=== PATIENT | male | born 1995 | race Caucasian/White ===

== ENCOUNTER 2017-02-20 14:54 | Inpatient (IN) | payer OTHER ==
[~2017-02-20] VITALS: Ht 170.2 cm; Wt 68.4 kg
[2017-02-20 14:58] VITALS: BP 139/88; PULSE 101; RESP 14; TEMP 98.2; O2SAT 99
--- NOTE | 2017-02-20 15:10 | PD ---
Physical Exam Date Seen by Provider: February 20, 2017 Narrative Pt is a 22 y/o male presenting to the ED for evaluation of severe depression and anxiety. No formal diagnosis of mental health problems. Pt states he can't tell what's real and what is not. Pt used to take "shrooms" years ago, he continues to have flashback from that time. Pt knows the hallucinations aren't real but cannot stop them. This has been ongoing for at least 1 month. Pt has had thoughts of suicide. Pt started on Zoloft 50mg 1 week ago. Mother also gives him Unisom to help him sleep at night. Pt is tearful. VSS, awaiting bed placement. Data Data Last Documented VS Vital Signs Date Time Temp Pulse Resp B/P Pulse Ox O2 Delivery O2 Flow Rate FiO2 02/20/17 14:58 98.2 101 14 139/88 99 MDM Supervised Visit with JARVIS: Brenda Gilbert February 20, 2017 15:09
--- NOTE | 2017-02-20 15:26 | PD ---
HPI Chief Complaint: Psychiatric Symptoms Time Seen by Provider: 15:17 Travel History International Travel<30 days: No Contact w/Intl Traveler<30days: No Traveled to known affect area: No History of Present Illness HPI Is a 22-year-old male who presents with his mother for psychiatric evaluation. Port that in September 2016 he was about to be released from the [employer]. As a "last hurrah" he decided to use mushrooms in order to get high. He reports that since then he has had feelings of depression, flashbacks, has been having difficulty distinguishing what is real and what is not real. He reports that he feels like he has a robot and everything is fake and now that he has this knowledge he is going to . He has been feeling this way for months but he only recently told his mother. Last week he was seen by his primary care physician Dr. Kemp, started on 50 mg of Zoloft, and encouraged to come here if symptoms worsened. He now comes here requesting psychiatric evaluation. He has occasional thoughts of hurting himself but he wants to live , feels that he has much to live for. He denies any homicidal ideation. He denies any other drug use since September. He denies any alcohol use. He has no other complaints at this time. [facility] Past Medical History Immunizations Current: Yes Social History Alcohol Use: No Tobacco Use: No Substance Use: No Allergies-Medications (Allergen,Severity, Reaction): Coded Allergies: No Known Allergies (Verified Allergy, Mild, 07/04/08) Reported Meds & Prescriptions Reported Meds & Active Scripts Active Reported Vitamin B-12 (Cyanocobalamin) 1,000 Mcg Tab 1,000 Mcg PO DAILY Zoloft (Sertraline HCl) 50 Mg Tab 50 Mg PO HS Review of Systems Except as stated in HPI: all other systems reviewed are Neg Physical Exam Narrative GENERAL: This is a somewhat disheveled-appearing male who is tearful, anxious on initial examination. SKIN: Warm and dry. HEAD: Atraumatic. Normocephalic. EYES: Pupils equal and round. No scleral icterus. No injection or drainage. ENT: No nasal bleeding or discharge. Mucous membranes pink and moist. NECK: Trachea midline. No JVD. CARDIOVASCULAR: Regular rate and rhythm. No murmur appreciated. RESPIRATORY: No accessory muscle use. Clear to auscultation. Breath sounds equal bilaterally. GASTROINTESTINAL: Abdomen soft, non-tender, nondistended. Hepatic and splenic margins not palpable. MUSCULOSKELETAL: No obvious deformities. No clubbing. No cyanosis. No edema. NEUROLOGICAL: Awake and alert. No obvious cranial nerve deficits. Motor grossly within normal limits. Normal speech. PSYCHIATRIC: Depressed, anxious, tearful. Data Data Last Documented VS Vital Signs Date Time Temp Pulse Resp B/P Pulse Ox O2 Delivery O2 Flow Rate FiO2 02/20/17 14:58 98.2 101 14 139/88 99 Orders Complete Blood Count With Diff (02/20/17 15:19) Comprehensive Metabolic Panel (02/20/17 15:19) Psych Screen (02/20/17 15:19) Drug Screen, Random Urine (02/20/17 15:19) Alcohol (Ethanol) (02/20/17 15:19) Lorazepam Inj (Ativan Inj) (02/20/17 15:30) Potassium Chloride (Kcl) (02/20/17 17:45) Labs Laboratory Tests Test 02/20/17 16:28 White Blood Count 8.0 TH/MM3 Red Blood Count 5.25 MIL/MM3 Hemoglobin 15.3 GM/DL Hematocrit 45.9 % Mean Corpuscular Volume 87.4 FL Mean Corpuscular Hemoglobin 29.2 PG Mean Corpuscular Hemoglobin 33.4 % Concent Red Cell Distribution Width 12.7 % Platelet Count 203 TH/MM3 Mean Platelet Volume 9.6 FL Neutrophils (%) (Auto) 76.2 % Lymphocytes (%) (Auto) 19.0 % Monocytes (%) (Auto) 4.0 % Eosinophils (%) (Auto) 0.4 % Basophils (%) (Auto) 0.4 % Neutrophils # (Auto) 6.1 TH/MM3 Lymphocytes # (Auto) 1.5 TH/MM3 Monocytes # (Auto) 0.3 TH/MM3 Eosinophils # (Auto) 0.0 TH/MM3 Basophils # (Auto) 0.0 TH/MM3 CBC Comment DIFF FINAL Differential Comment Sodium Level 139 MEQ/L Potassium Level 3.3 MEQ/L Chloride Level 105 MEQ/L Carbon Dioxide Level 26.6 MEQ/L Anion Gap 7 MEQ/L Blood Urea Nitrogen 10 MG/DL Creatinine 1.01 MG/DL Estimat Glomerular Filtration 91 ML/MIN Rate Random Glucose 87 MG/DL Calcium Level 8.8 MG/DL Total Bilirubin 0.8 MG/DL Aspartate Amino Transf 16 U/L (AST/SGOT) Alanine Aminotransferase 20 U/L (ALT/SGPT) Alkaline Phosphatase 58 U/L Total Protein 7.5 GM/DL Albumin 4.6 GM/DL Ethyl Alcohol Level LESS THAN 3 MG/DL MDM Medical Decision Making Medical Screen Exam Complete: Yes Emergency Medical Condition: Yes Medical Record Reviewed: Yes Differential Diagnosis Substance-induced disorder, adjustment reaction, acute psychosis, schizophrenia , schizoaffective disorder, major depressive disorder Narrative Course 22-year-old male who has been experiencing 4 months of depression, suicidal thoughts, feelings of detachment from reality ever since using shrooms as a psychedelic drug in September 2016. He was started on Zoloft last week which has not been helping. Plan is for psychiatric screening. We will check basic screening labs and provide him 1 mg Ativan for his anxiety. Mental health screening discussed with the patient. Psychiatric screen ordered. The patient is medically cleared for psychiatric disposition. Diagnosis Primary Impression: Medical clearance for psychiatric admission Herson Beckford February 20, 2017 15:26
[2017-02-20] MEDS ORDERED: LORazepam 2 MG/ML VIAL IM ONE (15:30)
[2017-02-20 16:55] LABS: AUTOMATED NEUTROPHIL # 6.1 TH/MM3 (1.8-7.7); BASOPHIL % 0.4 % (0.0-2.0); EOSINOPHIL % 0.4 % (0.0-4.0); HEMATOCRIT 45.9 % (39.0-51.0); HEMO FLAGS DIFF FINAL; LYMPHOCYTE # 1.5 TH/MM3 (1.0-4.8); MEAN CELL VOLUME 87.4 FL (80.0-100.0); MEAN CORPUSCULAR HEMOGLOBIN 29.2 PG (27.0-34.0); MEAN CORPUSCULAR HGB CONC 33.4 % (32.0-36.0); NEUT % 76.2 % (16.0-70.0); PLATELET COUNT 203 TH/MM3 (150-450); RED BLOOD COUNT 5.25 MIL/MM3 (4.50-5.90); RED CELL DISTRIBUTION WIDTH 12.7 % (11.6-17.2)
[2017-02-20 17:27] LABS: ANION GAP 7 MEQ/L (5-15)
[2017-02-20 17:31] LABS: ALKALINE PHOSPHATASE 58 U/L (45-117); ALT (GPT) 20 U/L (12-78); AST (GOT) 16 U/L (15-37); BICARBONATE 26.6 MEQ/L (21.0-32.0); BLOOD UREA NITROGEN 10 MG/DL (7-18); CHLORIDE 105 MEQ/L (98-107); GLOMERULAR FILTRATION RATE 91 ML/MIN (>89); POTASSIUM 3.3 MEQ/L (3.5-5.1); SODIUM (NA) 139 MEQ/L (136-145); TOTAL BILIRUBIN ADULT 0.8 MG/DL (0.2-1.0)
[2017-02-20] MEDS ORDERED: ZOLO50TA PO (17:41)
[2017-02-20] MEDS ORDERED: VITA10002 PO (17:41)
[2017-02-20] MEDS ORDERED: POTASSIUM CHLORIDE 20 MEQ CONTROLLED RELEASE TAB PO ONE (17:45)
[2017-02-20 17:53] LABS: AMPHETAMINE, URINE NEG (NEG); BARBITURATES, URINE NEG (NEG); COCAINE, URINE NEG (NEG)
[2017-02-20 18:47] VITALS: BP 123/82; PULSE 78; RESP 20; TEMP 98.2; O2SAT 97
[2017-02-20 22:23] VITALS: BP 114/82; PULSE 81; RESP 17; O2SAT 99
[2017-02-21 02:00] VITALS: BP 111/65; PULSE 61; RESP 18; O2SAT 99
[2017-02-21 06:00] VITALS: BP 120/66; PULSE 63; RESP 17; O2SAT 98
[2017-02-21 10:30] VITALS: BP 116/67; PULSE 89; RESP 18
[2017-02-21] MEDS ORDERED: LORazepam 1 MG TAB PO PRN (11:30)
[2017-02-21] MEDS ORDERED: hydrOXYzine HCL 50 MG TAB PO PRN (11:30)
[2017-02-21] MEDS ORDERED: diphenhydrAMINE HCL 50 MG/ML VIAL IM PRN (11:30)
[2017-02-21] MEDS ORDERED: ACETAMINOPHEN 325 MG TAB PO PRN (11:30)
[2017-02-21] MEDS ORDERED: LORazepam 2 MG/ML VIAL IM PRN ×2 (11:30)
[2017-02-21] MEDS ORDERED: LORazepam 0.5 MG TAB PO PRN (11:30)
[2017-02-21] MEDS ORDERED: ALUMINUM/MAGNESIUM/SIMETH 30 ML CUP PO PRN (11:30)
[2017-02-21] MEDS ORDERED: traZODone HCL 50 MG TAB PO PRN (11:30)
[2017-02-21] MEDS ORDERED: MAGNESIUM HYDROXIDE SUSP 30 ML CUP PO PRN (11:30)
[2017-02-21] MEDS ORDERED: diphenhydrAMINE HCL 50 MG CAP PO PRN (11:30)
--- NOTE | 2017-02-21 11:35 | HHI.HP ---
Provisional Diagnosis Admission Date February 21, 2017 at 11:17 [place]. Brief psychotic disorder Certification of Person's Competence To Provide Express and Informed Consent I have personally examined Tip Villegas , a person being served at [facility] on, February 21, 2017 11:22. Express and informed consent means consent voluntarily given in writing, by a competent person, after sufficient explanation and disclosure of the subject matter involved to enable the person to make a knowing and willful decision without any element of force, fraud, deceit, duress, or other form of constraint or coercion. This person is 18 years of age or older, is not now known to be incompetent to consent to treatment with a guardian advocate, and does not have a health care surrogate or proxy currently making medical treatment decisions. I have found this person to be one of the following: [X] Competent to provide express and informed consent, as defined above, for voluntary admission to this facility and is competent to provide express and informed consent for treatment. He/she has the consistent capacity to make well reasoned, willful, and knowing decisions concerning his or her medical or mental health treatment. The person fully and consistently understands the purpose of the admission for examination/placement and is fully capable of personally exercising all rights assured under [place] Incompetent to provide express and informed consent to voluntary admission, and this is incompetent to provide express and informed consent to treatment. The person must be transferred to involuntary status and a petition for a guardian advocate filed with the Circuit Court. [] Refusing to provide express and informed consent to voluntary admission but is competent to provide express and informed consent for treatment. The person must be discharged or transferred to involuntary status. Form shall be completed within 24 hours of a person's arrival at the receiving facility and filed in the clinical record of each person: 1. Admitted on a voluntary basis 2. Permitted to provide express and informed consent to his/her own treatment 3. Allowed to transfer from involuntary to voluntary status 4. Prior to permitting a person to consent to his or her own treatment after having been previously found incompetent to consent to treatment. History of Present Illness Capacity: Has Capacity HPI This is a 22-year-old male who may be experiencing his first full-blown psychotic episode. Patient explains this episode began in September 2016 prior to his discharge from the [employer]. Apparently he and several of his [employer] buddies used mushrooms. He came home to his family in October 2016 and has smoked marijuana several times, mostly in an effort to self medicate. He has experienced increasing delusional thinking, auditory hallucinations and possible visual hallucinations. He states that he has great difficulty distinguishing his dreams from reality. He hears voices that are laughing at him and this is very bothersome to him. He is oftentimes unable to avoid hearing these laughing voices and it is upsetting to the point that he may do something to harm himself or continue to self medicate. He also has delusional ideas that he is a robot and that he is not real. He states that he has seen things which he also questions as to the reality or falseness of these visions. The patient is obviously flat, making poor eye contact, and demonstrating impaired relatedness. He brought himself to the emergency Department voluntarily because he can no longer tolerate these experiences. He is afraid he may harm himself. In addition to the psychotic symptoms, he is expressing symptoms of anxiety and depressed mood with anhedonia. Review of Systems ROS Limitations: Psychotic Except as stated in HPI: all other systems reviewed are Neg Past Psych History Psychological trauma history Denied Violence risk - others (6 mos) Minimal to moderate. Violence risk - self (6 mos) Moderate Substance Abuse History Drugs/Alcohol past 12 months Mushrooms and marijuana. Past Family Social History Coded Allergies: No Known Allergies (Verified Allergy, Mild, 07/04/08) Reported Medications Cyanocobalamin (Vitamin B-12)1,000 Mcg Tab1,000 Mcg PO DAILY #1 BOTTLE Ref 0 02/20/17 Sertraline (Zoloft)50 Mg Tab50 Mg PO HS #30 TAB Ref 0 02/20/17 Family History Positive for depression and anxiety. Social History Not currently employed. Lives with his parents in [place]. Has 5 older brothers. Not and has no children. Substance abuse as described above. Received a honorable discharge from the [employer] although states he felt he could have deserved a medical discharge. Patient's Strengths (min. 2) Verbal and has access to healthcare. Physical Exam GENERAL: SKIN: Warm and dry. HEAD: Normocephalic. EYES: No scleral icterus. No injection or drainage. NECK: Supple, trachea midline. No JVD or lymphadenopathy. CARDIOVASCULAR: Regular rate and rhythm without murmurs, gallops, or rubs. RESPIRATORY: Breath sounds equal bilaterally. No accessory muscle use. GASTROINTESTINAL: Abdomen soft, non-tender, nondistended. MUSCULOSKELETAL: No cyanosis, or edema. BACK: Nontender without obvious deformity. No CVA tenderness. Vital Signs Vital Signs Date Time Temp Pulse Resp B/P Pulse Ox O2 Delivery O2 Flow Rate FiO2 02/21/17 10:30 89 18 116/67 Room Air 02/21/17 06:00 98 02/20/17 18:47 98.2 Mental Status Examination Speech: Hesitant Orientation: x3 Memory: Unremarkable Thought Process: Loose Association Thought Content: Paranoid Hallucination Type: Auditory, Visual Attention and Concentration: Abnormal Suicidal Ideation: Yes Previous Suicide Attempts: No Homicidal Ideation: No Previous Homicide Attempts: No Insight: Fair Judgment: Unrealistic Affect: Anxious, Sad Affect if Inappropriate: Flat Mood: Anxious Motor Activity: Normal gait Assessment & Plan Problem List: (1) Brief psychotic disorder ICD Code: F23 Assessment & Plan Estimated LOS: 7 days this is a 22-year-old male who is obviously experiencing a psychotic episode. This may be his first psychotic break and may be related to a schizophrenia reaction. This episode may also have been triggered by his use of mushrooms in September 2016. In any event, he has continued to use marijuana and what appears to be a self-medicating fashion but does not appear to have used mushrooms a second time and he confirms this. At this time he is at significant risk for self-harm due to the persistence of the auditory hallucinations that are laughing at him and his intolerance for these experiences. He describes suicidal ideation. Due to the unpredictable nature of his psychosis, this physician feels he is at significant risk for self-harm. Furthermore, because he is experiencing his first psychotic episode, he requires an evaluation including a comprehensive metabolic profile and thyroid profile and EEG to rule out organic causes of his psychotic symptoms. He also requires the metabolic profile and the EKG to establish his tolerance for psychiatric medications, including Abilify. This physician spoke with the patient's nurse regarding his current behavior and psychotic thinking. The patient's global vp creative + content marketing will be contacted to collect more information from the patient's family regarding his history of psychotic symptoms. It is anticipated he'll be in the hospital for at least a week. Nazario Avendaño MD February 21, 2017 11:35
[2017-02-21 12:20] VITALS: BP 116/67
[2017-02-21 12:51] VITALS: BP 134/85; PULSE 81; RESP 16; TEMP 98.1; O2SAT 100
[2017-02-21 13:33] VITALS: BP 134/85; PULSE 81; RESP 16; TEMP 98.1; O2SAT 100
--- NOTE | 2017-02-21 14:29 | PD.CONS ---
HPI Service [facility] Hospitalists Consult Requested By Psychiatric service Reason for Consult Medical management Primary Care Physician [facility] Diagnoses: History of Present Illness This is a 22-year-old male whose past medical history significant only for chronic costochondritis not responsive to NSAIDs he was admitted to the psychiatric unit for psychotic episode. Hospitalist services were consulted for medical management. Patient explained that in September of last year he took mushrooms for the first time. Since that time he has developed delusional thinking with hallucinations and thoughts of harming himself. He tried to self medicate with marijuana but when that failed to give him any improvement he stopped. He was seen by his primary care physician prior to this admission and was started on Zoloft. He also reports that he has an MRI of the brain scheduled as an outpatient in the next several weeks through his PCPs office. Patient denies any complaints of fever, chills, nausea, vomiting, diarrhea, dizziness, headache, shortness of breath chest pain or abdominal pain. Review of Systems Except as stated in HPI: all other systems reviewed are Neg Past Family Social History Allergies: Coded Allergies: No Known Allergies (Verified , 07/04/08) Past Medical History Costochondritis, chronic Past Surgical History Cholecystectomy Reported Medications Vitamin B-12 (Cyanocobalamin) 1,000 Mcg Tab 1,000 Mcg PO DAILY Zoloft (Sertraline HCl) 50 Mg Tab 50 Mg PO HS Active Ordered Medications Current Medications Medications (Trade) Dose Ordered Sig/Shalom Route Start Time Stop Time Status Last Admin (Ativan) 1 mg Q6H PRN PO 02/21/17 11:30 (Ativan Inj) 1 mg Q6H PRN IM 02/21/17 11:30 (Benadryl) 50 mg Q6H PRN PO 02/21/17 11:30 (Benadryl Inj) 50 mg Q6H PRN IM 02/21/17 11:30 (Tylenol) 650 mg Q4H PRN PO 02/21/17 11:30 (Milk Of Magnesia Liq) 30 ml DAILY PRN PO 02/21/17 11:30 (Mag-Al Plus Susp Liq) 30 ml Q6H PRN PO 02/21/17 11:30 (Desyrel) 50 mg HS PRN PO 02/21/17 11:30 (Atarax) 50 mg Q6H PRN PO 02/21/17 11:30 (Abilify) 2 mg HS PO 02/21/17 21:00 Family History Thyroid problems Depression Anxiety Social History Patient has a history of tobacco use but quit in November. He denies any alcohol consumption. He reports using mushrooms one time in September and reports previously using marijuana earlier this year but denies any recent drug use. 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 Physical Exam Vital Signs Vital Signs Date Time Temp Pulse Resp B/P Pulse Ox O2 Delivery O2 Flow Rate FiO2 02/21/17 13:33 98.1 81 16 134/85 100 02/21/17 12:51 98.1 81 16 134/85 100 02/21/17 12:20 89 18 116/67 02/21/17 10:30 89 18 116/67 Room Air 02/21/17 06:00 63 17 120/66 98 Room Air 02/21/17 02:00 61 18 111/65 99 Room Air 02/20/17 22:23 81 17 114/82 99 Room Air 02/20/17 18:47 98.2 78 20 123/82 97 02/20/17 14:58 98.2 101 14 139/88 99 Physical Exam GENERAL: This is a well-nourished, well-developed patient, in no apparent distress. Awake and alert. Pleasant and cooperative. SKIN: No rashes, ecchymoses or lesions. Cool and dry. HEAD: Atraumatic. Normocephalic. EYES: Pupils equal round and reactive. Extraocular motions intact. No scleral icterus. No injection or drainage. ENT: Nose without bleeding, purulent drainage or septal hematoma. Throat without erythema, tonsillar hypertrophy or exudate. Uvula midline. Airway patent. NECK: Trachea midline. No lymphadenopathy. Supple, nontender, no meningeal signs. CARDIOVASCULAR: Regular rate and rhythm without murmurs, gallops, or rubs. RESPIRATORY: Clear to auscultation. Breath sounds equal bilaterally. No wheezes , rales, or rhonchi. GASTROINTESTINAL: Abdomen soft, non-tender, nondistended. No hepato-splenomegaly , or palpable masses. No guarding. MUSCULOSKELETAL: (+) Tenderness to palpation right anterior chest wall. Extremities without clubbing, cyanosis, or edema. No joint tenderness, effusion , or edema noted. No calf tenderness. NEUROLOGICAL: Awake and alert. Able to move all extremities. No focal neurologic findings appreciated. Normal speech. Laboratory Laboratory Tests Test 02/20/17 02/20/17 16:28 17:13 White Blood Count 8.0 Red Blood Count 5.25 Hemoglobin 15.3 Hematocrit 45.9 Mean Corpuscular Volume 87.4 Mean Corpuscular Hemoglobin 29.2 Mean Corpuscular Hemoglobin 33.4 Concent Red Cell Distribution Width 12.7 Platelet Count 203 Mean Platelet Volume 9.6 Neutrophils (%) (Auto) 76.2 Lymphocytes (%) (Auto) 19.0 Monocytes (%) (Auto) 4.0 Eosinophils (%) (Auto) 0.4 Basophils (%) (Auto) 0.4 Neutrophils # (Auto) 6.1 Lymphocytes # (Auto) 1.5 Monocytes # (Auto) 0.3 Eosinophils # (Auto) 0.0 Basophils # (Auto) 0.0 CBC Comment DIFF FINAL Differential Comment Sodium Level 139 Potassium Level 3.3 Chloride Level 105 Carbon Dioxide Level 26.6 Anion Gap 7 Blood Urea Nitrogen 10 Creatinine 1.01 Estimat Glomerular Filtration 91 Rate Random Glucose 87 Calcium Level 8.8 Total Bilirubin 0.8 Aspartate Amino Transf 16 (AST/SGOT) Alanine Aminotransferase 20 (ALT/SGPT) Alkaline Phosphatase 58 Total Protein 7.5 Albumin 4.6 Ethyl Alcohol Level LESS THAN 3 Urine Opiates Screen NEG Urine Barbiturates Screen NEG Urine Amphetamines Screen NEG Urine Benzodiazepines Screen NEG Urine Cocaine Screen NEG Urine Cannabinoids Screen NEG Result Diagram: 02/20/17 1628 02/20/17 1628 Assessment and Plan Assessment and Plan 22-year-old male whose past medical history significant only for chronic costochondritis not responsive to NSAIDs he was admitted to the psychiatric unit for psychotic episode. Hospitalist services were consulted for medical management. //Psychotic episode after using psychedelics for the first time in September 2016 - Management per psychiatric team //Hypokalemia - Mild - By mouth repletion - A.m. labs to monitor //Costochondritis, chronic - Patient reports failing NSAID therapy in the past - monitor Thank you for allowing us the opportunity to care for this patient. Written by Meryl Martin PA-C acting as scribe for Dr. Humphrey on 02/21/17 at 14 :14. This note was transcribed by scribe Meryl Palaciosm, PA-C. I, Dr. Jann Humphrey personally performed the history, physical exam, and medical decision making; and confirmed the accuracy of the information in the transcribed note. Authenticated by Dr. Jann Humphrey on 02/21/17 at 21:23. Meryl Martin February 21, 2017 14:29 Desiree Humphrey DO February 21, 2017 21:23
[2017-02-21] MEDS: ARIPiprazole 2 MG TAB PO SCH (21:06)
[2017-02-22 05:07] VITALS: BP 118/57; PULSE 62; RESP 16; TEMP 97.7; O2SAT 98
[2017-02-22 09:09] LABS: AUTOMATED NEUTROPHIL # 5.1 TH/MM3 (1.8-7.7); BASOPHIL % 0.3 % (0.0-2.0); EOSINOPHIL # 0.1 TH/MM3 (0-0.4); EOSINOPHIL % 1.1 % (0.0-4.0); HEMATOCRIT 47.8 % (39.0-51.0); HEMO FLAGS DIFF FINAL; LYMPH % 23.5 % (9.0-44.0); LYMPHOCYTE # 1.7 TH/MM3 (1.0-4.8); MEAN CELL VOLUME 87.6 FL (80.0-100.0); MEAN CORPUSCULAR HGB CONC 33.1 % (32.0-36.0); MONO % 4.3 % (0.0-8.0); NEUT % 70.8 % (16.0-70.0); PLATELET COUNT 216 TH/MM3 (150-450); RED BLOOD COUNT 5.46 MIL/MM3 (4.50-5.90); RED CELL DISTRIBUTION WIDTH 12.9 % (11.6-17.2); WHITE BLOOD COUNT 7.1 TH/MM3 (4.0-11.0)
[2017-02-22 10:06] LABS: ALT (GPT) 23 U/L (12-78); ANION GAP 9 MEQ/L (5-15); AST (GOT) 14 U/L (15-37); BICARBONATE 30.5 MEQ/L (21.0-32.0); BLOOD UREA NITROGEN 10 MG/DL (7-18); CHLORIDE 102 MEQ/L (98-107); GLOMERULAR FILTRATION RATE 95 ML/MIN (>89); POTASSIUM 3.9 MEQ/L (3.5-5.1); SODIUM (NA) 141 MEQ/L (136-145)
[2017-02-22 10:31] LABS: ALKALINE PHOSPHATASE 61 U/L (45-117); HDL CHOLESTEROL 47.8 MG/DL (40.0-60.0); LDL CHOLESTEROL 95 MG/DL (0-99); TOTAL BILIRUBIN ADULT 0.7 MG/DL (0.2-1.0)
[2017-02-22 13:17] LABS: HEMOGLOBIN A1a 0.7 %; HEMOGLOBIN A1b 1.4 %; HEMOGLOBIN Ao 87.1 %; HEMOGLOBIN LA1C 1.9 %; HEMOGLOBIN P3 3.4 %
--- NOTE | 2017-02-22 14:59 | HHI.PYPN ---
Subjective Remarks Patient was seen and case discussed with nursing. Patient says the auditory hallucinations have decreased but are still there and today is described as laughing at him. Feels that somebody is watching him. Patient is somewhat vague. Continues to ruminate about an episode when he was high on mushrooms in September. Complaining of poor sleep. Mood is stable. Denies suicidal ideation intent or plan Objective Alert: Yes [place]: Person, Place, Date, Situation Mood: Anxious Affect: Restricted Memory Intact: Immediate (intact) Hallucinations: Auditory (laughing at him), Visual (seeing patterns on the floor) Delusions: Yes Delusion Type: Paranoid (somebody is watching him) Suicidal: Ideation (denies) Homicidal: Ideation (denies) Insight/Judgment Poor Labs Test 02/22/17 08:09 White Blood Count 7.1 TH/MM3 Red Blood Count 5.46 MIL/MM3 Hemoglobin 15.8 GM/DL Hematocrit 47.8 % Mean Corpuscular Volume 87.6 FL Mean Corpuscular Hemoglobin 29.0 PG Mean Corpuscular Hemoglobin 33.1 % Concent Red Cell Distribution Width 12.9 % Platelet Count 216 TH/MM3 Mean Platelet Volume 9.7 FL Neutrophils (%) (Auto) 70.8 % Lymphocytes (%) (Auto) 23.5 % Monocytes (%) (Auto) 4.3 % Eosinophils (%) (Auto) 1.1 % Basophils (%) (Auto) 0.3 % Neutrophils # (Auto) 5.1 TH/MM3 Lymphocytes # (Auto) 1.7 TH/MM3 Monocytes # (Auto) 0.3 TH/MM3 Eosinophils # (Auto) 0.1 TH/MM3 Basophils # (Auto) 0.0 TH/MM3 CBC Comment DIFF FINAL Differential Comment Sodium Level 141 MEQ/L Potassium Level 3.9 MEQ/L Chloride Level 102 MEQ/L Carbon Dioxide Level 30.5 MEQ/L Anion Gap 9 MEQ/L Blood Urea Nitrogen 10 MG/DL Creatinine 0.97 MG/DL Estimat Glomerular Filtration 95 ML/MIN Rate Random Glucose 93 MG/DL Hemoglobin A1c 5.0 % Calcium Level 9.4 MG/DL Total Bilirubin 0.7 MG/DL Aspartate Amino Transf 14 U/L (AST/SGOT) Alanine Aminotransferase 23 U/L (ALT/SGPT) Alkaline Phosphatase 61 U/L Total Protein 7.9 GM/DL Albumin 4.8 GM/DL Triglycerides Level 128 MG/DL Cholesterol Level 168 MG/DL LDL Cholesterol 95 MG/DL HDL Cholesterol 47.8 MG/DL Cholesterol/HDL Ratio 3.51 RATIO Vitamin B12 Level 465 PG/ML 25-Hydroxy Vitamin D Total 10.5 ng/ML Thyroid Stimulating Hormone 1.630 uIU/ML 3rd Gen Vitals/IOs Vital Signs Date Time Temp Pulse Resp B/P Pulse Ox O2 Delivery O2 Flow Rate FiO2 02/22/17 05:07 97.7 62 16 118/57 98 02/21/17 10:30 Room Air Assessment & Plan Problem List: (1) Brief psychotic disorder ICD Code: F23 Assessment & Plan We'll adjust medication for sleep. We will order a ct head Justification for Cont. Inpt. Patient will decompensate in a less restrictive setting Guille Rosas DO February 22, 2017 14:59
[2017-02-22] MEDS ORDERED: diphenhydrAMINE HCL 25 MG CAP PO PRN (15:00)
[2017-02-22 17:52] VITALS: BP 135/73; PULSE 70; RESP 16; TEMP 98.4; O2SAT 99
--- NOTE | 2017-02-22 21:50 | EKG ---
Date Performed: 02/22/2017 Time Performed: 11:58:47 PTAGE: 22 years EKG: Sinus rhythm NORMAL ECG NO PREVIOUS TRACING DOCTOR: Danie Hamm Interpretating Date/Time 02/22/2017 21:47:13
[2017-02-22] MEDS: ARIPiprazole 2 MG TAB PO SCH (21:55)
--- NOTE | 2017-02-22 22:17 | RADRPT ---
EXAM DATE/TIME: 02/22/2017 21:43 [place] COMPARISON: No previous studies available for comparison. INDICATIONS : Auditory hallucinations; rule out mass. RADIATION DOSE: 56.35 CTDIvol (mGy) MEDICAL HISTORY : None SURGICAL HISTORY : None. ENCOUNTER: Initial ACUITY: 1 day PAIN SCALE: 0/10 LOCATION: cranial TECHNIQUE: Multiple contiguous axial images were obtained of the head. Using automated exposure control and adj ustment of the mA and/or kV according to patient size, radiation dose was kept as low as reasonably a chievable to obtain optimal diagnostic quality images. FINDINGS: CEREBRUM: The ventricles are normal for age. No evidence of midline shift, mass lesion, hemorrhage or acute in farction. No extra-axial fluid collections are seen. POSTERIOR FOSSA: The cerebellum and brainstem are intact. The 4th ventricle is midline. The cerebellopontine angle i s unremarkable. EXTRACRANIAL: The visualized portion of the orbits is intact. SKULL: The calvaria is intact. No evidence of skull fracture. CONCLUSION: Normal examination. Costa Alexandre MD on February 22, 2017 at 22:13 Board Certified Radiologist. This report was verified electronically.
[2017-02-23 05:38] VITALS: BP 100/56; PULSE 60; RESP 17; TEMP 97.3; O2SAT 97
--- NOTE | 2017-02-23 13:36 | HHI.PYPN ---
Subjective Remarks Patient was seen and case discussed with nursing. This auditory visual hallucinations have completely resolved. CAT scan was negative. Patient remains reserved complaining of anxiety though affect is not congruent. Complaining of sleeping 1-2 hours a night. Denies suicidal ideation intent or plan Objective Alert: Yes [place]: Person, Place, Date, Situation Mood: Anxious Affect: Restricted Memory Intact: Immediate (intact) Hallucinations: Auditory (denies) Delusions: Yes Delusion Type: Paranoid (somebody is watching him) Suicidal: Ideation (denies) Homicidal: Ideation (denies) Insight/Judgment Poor Vitals/IOs Vital Signs Date Time Temp Pulse Resp B/P Pulse Ox O2 Delivery O2 Flow Rate FiO2 02/23/17 05:38 97.3 60 17 100/56 97 02/21/17 10:30 Room Air Assessment & Plan Problem List: (1) Brief psychotic disorder ICD Code: F23 Assessment & Plan Increase trazodone to 100 mg daily at bedtime. Add gabapentin 300 mg by mouth 3 times a day Justification for Cont. Inpt. Patient will decompensate in a less restrictive setting Guille Rosas DO February 23, 2017 13:36
[2017-02-23] MEDS: GABAPENTIN 300 MG CAP PO SCH ×2 (13:50→18:18)
--- NOTE | 2017-02-23 15:51 | HHI.PR ---
Subjective Remarks Follow-up visit chronic costochondritis unrelieved by NSAID therapy in the past , altered mental status. Patient seen and examined today. Reports he is doing well. Alert and oriented to place, person and time Denies SI/HI. States costochondritis is still present also complains of back pain, intermittent, dull pain, 4/10 but improving compared to previous. Otherwise, denies SOB/ dyspnea. Denies chest pain, palpitations, headaches, dizziness. Denies fevers, chills, n/v/d. Objective Vitals Vital Signs Date Time Temp Pulse Resp B/P Pulse Ox O2 Delivery O2 Flow Rate FiO2 02/23/17 05:38 97.3 60 17 100/56 97 02/22/17 17:52 98.4 70 16 135/73 99 Result Diagram: 02/22/17 0809 02/22/17 0809 Imaging Last Impressions Head CT 02/22/17 0000 Signed Impressions: Service Date/Time: Wednesday, February 22, 2017 21:43 - CONCLUSION: Normal examination. Costa Alexandre MD Objective Remarks GENERAL: This is a well-nourished, well-developed patient, in no apparent distress. Awake and alert. Pleasant and cooperative. SKIN: No rashes, ecchymoses or lesions. Cool and dry. HEAD: Atraumatic. Normocephalic. EYES: Pupils equal round and reactive. Extraocular motions intact. No scleral icterus. No injection or drainage. ENT: Nose without bleeding. Throat without erythema. Uvula midline. Airway patent. NECK: Trachea midline. No lymphadenopathy. Supple, nontender, no meningeal signs. CARDIOVASCULAR: Regular rate and rhythm without murmurs, gallops, or rubs. RESPIRATORY: Clear to auscultation. Breath sounds equal bilaterally. No wheezes , rales, or rhonchi. GASTROINTESTINAL: Abdomen soft, non-tender, nondistended. MUSCULOSKELETAL: (+) Tenderness to palpation right anterior chest wall. NEUROLOGICAL: Awake and alert. Able to follow commands. Able to move all extremities. No focal neurologic findings appreciated. Normal speech. A/P Problem List: (1) Brief psychotic disorder ICD Code: F23 Status: Acute Assessment and Plan Patient is 22-year-old male whose past medical history significant only for chronic costochondritis not responsive to NSAIDs he was admitted to the psychiatric unit for psychotic episode. Hospitalist services were consulted for medical management for altered mental status. Psychotic episode after using psychedelics for the first time in September 2016 Altered Mental Status - Management per psychiatric team - CT of the brain shows normal examination, labs are unremarkable, U tox negative Hypokalemia - Replaced. Potassium level is 3.9 02/22/17 Costochondritis, chronic - Patient reports failing NSAID therapy in the past - Continue gabapentin, Tylenol when necessary - monitor DVT prop patient is ambulatory Discussed with patient, nursing Stable from Hospitalist standpoint. We will sign off. Reconsult as needed. Jacqueline Barron February 23, 2017 15:51
[2017-02-23] MEDS: ARIPiprazole 2 MG TAB PO SCH (21:00)
[2017-02-23] MEDS: traZODone HCL 100 MG TAB PO SCH (21:00)
[2017-02-23 21:19] VITALS: BP 125/76; PULSE 68; RESP 16; TEMP 97.7; O2SAT 98
[2017-02-24 05:54] VITALS: BP 105/65; PULSE 78; RESP 16; TEMP 95.6; O2SAT 93
[2017-02-24] MEDS: GABAPENTIN 300 MG CAP PO SCH ×3 (09:30→18:00)
--- NOTE | 2017-02-24 11:31 | HHI.PYPN ---
Subjective Remarks Patient appears less anxious today. He continues to report auditory hallucinations but denies any visual hallucinations. His dose of Abilify has been increased to 10 mg per day. Review of Systems ROS Limitations: Psychotic Objective Alert: Yes [place]: Person, Place, Date, Situation Mood: Anxious Affect: Restricted Memory Intact: Immediate (intact) Hallucinations: Auditory (denies) Delusions: Yes Delusion Type: Paranoid (somebody is watching him) Suicidal: Ideation (denies) Homicidal: Ideation (denies) Insight/Judgment Impaired Vitals/IOs Vital Signs Date Time Temp Pulse Resp B/P Pulse Ox O2 Delivery O2 Flow Rate FiO2 02/24/17 05:54 95.6 78 16 105/65 93 02/21/17 10:30 Room Air Assessment & Plan Problem List: (1) Brief psychotic disorder ICD Code: F23 Assessment & Plan Estimated LOS: 2-3 days patient needs more time on Abilify to respond. He remains psychotic with auditory hallucinations. This physician plans to meet with his family regarding discharge planning. Justification for Cont. Inpt. Psychotic and likely to decompensate at lower level of care. Nazario Avendaño MD February 24, 2017 11:31
[2017-02-24 20:00] VITALS: BP 121/77; PULSE 94; RESP 18; TEMP 98.7; O2SAT 96
[2017-02-24] MEDS: ARIPiprazole 2 MG TAB PO SCH (21:00)
[2017-02-24] MEDS: traZODone HCL 100 MG TAB PO SCH (21:14)
[2017-02-25 05:29] VITALS: BP 97/62; PULSE 57; RESP 16; TEMP 97.9; O2SAT 97
[2017-02-25] MEDS: GABAPENTIN 300 MG CAP PO SCH ×3 (08:20→18:27)
--- NOTE | 2017-02-25 11:32 | HHI.PYPN ---
Subjective Remarks Patient seen in day room with nurse Dawna patient calm cooperative states the voices are just about gone at this time, showing some insight into his need for compliance with the medication. He does denies suicidality at this time. We'll attempt to arrange meetings with patient's mother for tomorrow morning Review of Systems Except as stated in HPI: all other systems reviewed are Neg Objective Alert: Yes [place]: Person, Place, Date, Situation Mood: Anxious Affect: Restricted Memory Intact: Immediate (intact) Hallucinations: Auditory (states have gone at this time) Delusions: Yes Delusion Type: Paranoid (markedly decreased) Suicidal: Ideation (denies) Homicidal: Ideation (denies) Insight/Judgment Poor Vitals/IOs Vital Signs Date Time Temp Pulse Resp B/P Pulse Ox O2 Delivery O2 Flow Rate FiO2 02/25/17 05:29 97.9 57 16 97/62 97 02/21/17 10:30 Room Air Assessment & Plan Problem List: (1) Brief psychotic disorder ICD Code: F23 Assessment & Plan Estimated LOS: days patient psychosis is diminishing. Compliant with medications. Attempt to meet with patient's mother tomorrow Justification for Cont. Inpt. At this time patient will decompensate if placed in a lower level of care Discharge Planning To be determined Werner Cabrera MD February 25, 2017 11:32
[2017-02-25] MEDS: traZODone HCL 100 MG TAB PO SCH (20:44)
[2017-02-25] MEDS: ARIPiprazole 2 MG TAB PO SCH (20:44)
[2017-02-25 21:02] VITALS: BP 127/77; PULSE 62; RESP 16; TEMP 98.3; O2SAT 98
[2017-02-26 05:57] VITALS: BP 98/53; PULSE 77; RESP 16; TEMP 97.7; O2SAT 98
[2017-02-26] MEDS: GABAPENTIN 300 MG CAP PO SCH ×2 (08:25→13:04)
[2017-02-26] MEDS ORDERED: TRAZ100T4 PO (11:00)
[2017-02-26] MEDS ORDERED: ABIL2TAB2 PO (11:00)
[2017-02-26] MEDS ORDERED: NEUR300C PO (11:00)
--- NOTE | 2017-02-26 11:07 | HHI.DS ---
Psychiatry Discharge Summary Inpatient Psychiatric care?: Yes Advance Directive: No Reason Not Provided: does not have Mental Health AdvanceDirective: No Health Care Proxy: No Admission Admission Date February 21, 2017 at 11:17 Admission Diagnosis: (1) Brief psychotic disorder ICD Code: F23 Brief History This is a 22-year-old male who may be experiencing his first full-blown psychotic episode. Patient explains this episode began in September 2016 prior to his discharge from the [employer]. Apparently he and several of his [employer] buddies used mushrooms. He came home to his family in October 2016 and has smoked marijuana several times, mostly in an effort to self medicate. He has experienced increasing delusional thinking, auditory hallucinations and possible visual hallucinations. He states that he has great difficulty distinguishing his dreams from reality. He hears voices that are laughing at him and this is very bothersome to him. He is oftentimes unable to avoid hearing these laughing voices and it is upsetting to the point that he may do something to harm himself or continue to self medicate. He also has delusional ideas that he is a robot and that he is not real. He states that he has seen things which he also questions as to the reality or falseness of these visions. The patient is obviously flat, making poor eye contact, and demonstrating impaired relatedness. He brought himself to the emergency Department voluntarily because he can no longer tolerate these experiences. He is afraid he may harm himself. In addition to the psychotic symptoms, he is expressing symptoms of anxiety and depressed mood with anhedonia. Tobacco Use In Past 30 Days: No Tobacco Past 30 Days Alcohol Use: Never Hospital Course Patient's hospital course was uneventful. Patient show compliance with medication. His psychosis auditory hallucinations of vague visual components resolved. Patient seen by me yesterday denies suicidality homicidality voices or visions. I met this a.m. with patient's mother and father. They're quite supporting unloving good insight into his issues. They to believe that he is doing better. Patient is a did see action in [place]. Patient's mother who is quite involved with him has made arrangements the patient to follow-up at the [facility] here in town. Patient seen this a.m. continues to deny suicidality homicidality voices or visions. Is compliant with medications has some insight into his need for complete abstinence, compliant medications, and appropriate mental health follow-up both psychiatric services through the [facility] and perhaps follow-up with our outpatient support groups. Thus patient will be discharged today to his family Rx 1 month with follow-up as mentioned above Results Blood Pressure 98 / 53 Vital Signs Date Time Temp Pulse Resp B/P Pulse Ox O2 Delivery O2 Flow Rate FiO2 02/26/17 05:57 97.7 77 16 98/53 98 Laboratory Results Test 02/22/17 08:09 Hemoglobin A1c 5.0 % (4.3-6.0) Triglycerides Level 128 MG/DL (42-150) Cholesterol Level 168 MG/DL (120-200) LDL Cholesterol 95 MG/DL (0-99) HDL Cholesterol 47.8 MG/DL (40.0-60.0) Summary of Procedures None done Imaging Last Impressions Head CT 02/22/17 0000 Signed Impressions: Service Date/Time: Wednesday, February 22, 2017 21:43 - CONCLUSION: Normal examination. Costa Alexandre MD Pending results at discharge: No Medications # of Antipsychotic meds at D/C: 1 [place] Antipsych med options 1 - Minimum of three failed multiple trials of monotherapy. 2 - Documented plan to taper to monotherapy due to previous use of multiple meds OR cross-taper in progress at D/C. 3 - Documentation of augmentation of Clozapine. 4 - Justification other than those listed in allowable values 1-3, document here : Discharge Discharge Date: February 26, 2017 Discharge Diagnosis: (1) Brief psychotic disorder Diagnosis: Principal ICD Code: F23 Mental Status Exam at Disch Alert oriented thin slender white male thick light brown arteaga and hair. Calm cooperative with me oriented 4. He is normal active, mood is euthymic with good range intensity of his affect, speech rate and rhythm within normal limits no formal thought disorders. No auditory or visual hallucinations no delusions noted insight and judgment is poor to fair, cognition grossly intact Pt Condition on Discharge: Stable Discharge Disposition: Discharge Home Discharge Instructions Diet Instructions: As Tolerated, No Restrictions Activities you can perform: Regular-No Restrictions Scheduled Appointment: follow-up [facility] outpatient clinic, referred [facility] outpatient support groups Discharge Time > 30 minutes Discharge/Advance Care Plan Health Problems: (1) Brief psychotic disorder Goals to promote your health * To prevent worsening of your condition and complications * To maintain your health at the optimal level Directions to meet your goals Take your medications as prescribed Follow your dietary instruction Follow activity as directed Keep your appointments as scheduled Take your immunizations and boosters as scheduled If your symptoms worsen call your PCP, if no PCP go to Urgent Care Center or Emergency Room For 12/05 questions related to your inpatient stay or results of tests pending at discharge, please contact Dr. Werner Cabrera at Smoking is Dangerous to Your Health. Avoid second hand smoking Werner Cabrera MD February 26, 2017 11:07
== END 2017-02-26 14:15 | disposition home or self-care (01) | DRG 885 ==
LOC: NEPD 14:54 → NEDA 02-21 11:17 → H260 02-21 12:30
PROVIDERS: ADMIT Psychiatry & Neurology Psychiatry; ATTEND Psychiatry & Neurology Psychiatry
DX: F23 Brief psychotic disorder (principal); F22 Delusional disorders; R45.851 Suicidal ideations; E87.6 Hypokalemia; F12.90 Cannabis use, unspecified, uncomplicated; F16.90 Hallucinogen use, unspecified, uncomplicated; F41.9 Anxiety disorder, unspecified; M94.0 Chondrocostal junction syndrome [Tietze]; Z87.891 Personal history of nicotine dependence
CPT/HCPCS: 70450; 80053; 80061; 80307; 82306; 82607; 83036; 84443; 85025; 93005; 96372; J2060; Q0163